=== PATIENT | male | born 1955 | race Hispanic/Latino ===

== ENCOUNTER 2022-09-13 11:22 | Outpatient (CLI) | payer BC, SELFPAY ==
--- NOTE | 2022-09-13 11:38 | ECG_ITS ---
Measurements Intervals [place] Rate: 93 P: 7 DE: 153 QRS: -35 QRSD: 94 T: 80 QT: 360 QTc: 449 Interpretive Statements REDUCED ECG QUALITY BECAUSE OF BASELINE ARTIFACT SINUS RHYTHM INFERIOR MYOCARDIAL INFARCTION [40+ ms Q WAVE AND/OR ST/T ABNORMALITY IN II/aVF], PROBABLY OLD NO PREVIOUS ECG AVAILABLE FOR COMPARISON Electronically Signed On 09-13-2022 15:14:03 BACON SLICER by Nestor Sandoval M.D.
[2022-09-13 12:04] LABS: Hematocrit 35.7 % (42.0-52.0); Hemoglobin 11.3 g/dL (14.0-18.0)
[2022-09-13 12:13] LABS: Anion Gap 8 mmol/L (8-16); Blood Urea Nitrogen 12 mg/dL (9-20); Calcium 8.9 mg/dL (8.4-10.2); Carbon Dioxide 30 mmol/L (22-30); Chloride 102 mmol/L (98-107); Estimated Glomerular Filt Rate > 60; Glucose 109 mg/dL (65-110); Potassium 4.5 mmol/L (3.4-5.0); Sodium 140 mmol/L (137-145)
== END 2022-09-13 11:23 | disposition home or self-care (01) ==
PROVIDERS: Anesthesiology; PCP Family Medicine; Visit Provider Neurological Surgery
DX: M48.062 Spinal stenosis, lumbar region with neurogenic claudication (principal); I10 Essential (primary) hypertension; Z79.899 Other long term (current) drug therapy; Z01.818 Encounter for other preprocedural examination; R94.31 Abnormal electrocardiogram [ECG] [EKG]; I21.19 ST elevation (STEMI) myocardial infarction involving other coronary artery of inferior wall
CPT/HCPCS: 36415; 80048; 85014; 85018; 86850; 86900; 86901; 93005

== ENCOUNTER 2022-09-30 00:17 | Day surgery (SDC) | payer BC, SELFPAY ==
[2022-09-03 10:40] VITALS: BMI 25.4
--- NOTE | 2022-09-03 10:58 | PC.NURSE ---
PRE-OP INSTRUCTIONS, PLEASE READ CAREFULLY Report to the Outpatient Waiting Room, entrance under the green pavilion located off [facility], at time _0930_ on date _09/16/22_. Planned Procedure Time: _1130_. PACK A SMALL OVERNIGHT BAG AND LEAVE IN THE CAR Time changes happen often and if your time is changed the preop area will call you the afternoon before. - You and your visitor will be asked to self-screen and do not enter if you have any COVID symptoms. - Only one visitor is requested with a max of two and NO children visitors are allowed at this time. - The patient visitor may be requested to leave or wait in car when not with patient due to distancing restrictions. - A mask is optional within the hospital. -VISITING HOURS 8AM-8PM Patients may have clear liquids (water, carbonated beverages, clear teas, apple juice) until 3 hours prior to surgery (0830 AM) with a maximum of 20 ounces. - No food from midnight until time of surgery Take the following medications with a SIP of water the morning of surgery: _TRAMADOL AND NASAL SPRAY IF NEEDED__ Medications to discontinue _ALEVE PER DR. LALA'S INSTRUCTIONS_ Please no make-up, nail slovak, hairspray, perfume, deodorant, or body powder the day of surgery. No jewelry (including any body piercings) or valuables the day of surgery, leave them at home. Please take a shower or bath the night before, or the morning of, surgery with an antibacterial soap. Wear comfortable, loose fitting clothing. - Jewelry must be removed prior to entering the operating room. Rings and piercings that are not removed may be cut off. - The hospital will not accept responsibility for valuables. - Please leave all valuables, including medications, at home the day of surgery. If you are going home after surgery, a licensed four horse hitch driver must drive you home. - NO public transportation without another adult if you receive anesthesia. - We recommend that an adult stay with you for 24 hours following discharge. - We also recommend that you do not drive, make important decision, drink alcoholic beverages, or take any drugs that were not prescribed by your health care provider for at least 24 hours after your discharge time. Follow any additional instructions given to you from your surgeon. If you or anyone in your household have experienced Covid symptoms in the past week, please notify your surgeon or the nurse liaison at the phone number below for possible testing. Telephone instructions given to ____PT and asked if any additional questions and then verbalized understanding. Patient advised to call surgeon office or pre surgery nurse liaison [phone] if any additional questions.
--- NOTE | 2022-09-20 09:53 | PC.NURSE ---
Report to the Outpatient Waiting Room, entrance under the green pavilion located off [facility], at time __0830 on date __09/30/22 . Planned Procedure Time: __1030 . Time changes happen often and if your time is changed the preop area will call you the afternoon before. - You and your visitor will be asked to self-screen and do not enter if you have any COVID symptoms. - Only one visitor is requested with a max of two and NO children visitors are allowed at this time. - The patient visitor may be requested to leave or wait in car when not with patient due to distancing restrictions. - A mask is optional within the hospital. Patients may have clear liquids (water, carbonated beverages, clear teas, apple juice) until 3 hours prior to surgery (0730 AM) with a maximum of 20 ounces. - No food from midnight until time of surgery - Infants may have breast milk until 4 hours before surgery, formula 6 hours prior to surgery. - Children will be allowed to drink immediately following surgery. If applicable, please bring a bottle or sippy cup to assist with drinking. Juice, water, soda, and popsicles are readily available. For infants on formula, please bring formula the day of surgery. Pacifiers are allowed. Take the following medications with a SIP of water the morning of surgery: __TRAMADOL & NASAL SPRAY IF NEEDED__ Medications to discontinue per physician __ALEVE PER DR. LALA'S INSTRUCTIONS__ Date to take last dose Please no make-up, nail turkmen, hairspray, perfume, deodorant, or body powder the day of surgery. No jewelry (including any body piercings) or valuables the day of surgery, leave them at home. Please take a shower or bath the night before, or the morning of, surgery with an antibacterial soap. Wear comfortable, loose fitting clothing. Children are encouraged to wear pajamas. - Jewelry must be removed prior to entering the operating room. Rings and piercings that are not removed may be cut off. - The hospital will not accept responsibility for valuables. - Please leave all valuables, including medications, at home the day of surgery. If you are going home after surgery, a licensed driver's license examiner must drive you home. - NO public transportation without another adult if you receive anesthesia. - We recommend that an adult stay with you for 24 hours following discharge. - We also recommend that you do not drive, make important decision, drink alcoholic beverages, or take any drugs that were not prescribed by your health care provider for at least 24 hours after your discharge time. For Pediatric surgeries, we recommend two adults accompany the child home. Follow any additional instructions given to you from your surgeon. If you or anyone in your household have experienced Covid symptoms in the past week, please notify your surgeon or the nurse liaison at the phone number below for possible testing. Telephone instructions given to ____PT and asked if any additional questions and then verbalized understanding. Patient advised to call surgeon office or pre surgery nurse liaison [phone] if any additional questions.
[2022-09-30] VITALS (13 sets, daily range): BP systolic 95–124; BP diastolic 40–70; PULSE 78–99; RESP 14–18; TEMP 36.2–37.2; O2SAT 94–100
--- NOTE | ~2022-09-30 | XR_ITS ---
EXAMINATION: XR fluoroscopy no charge DATE: 09/30/2022 15:02 INDICATION: Lumbar stenosis with neurogenic claudication. TECHNIQUE: 2 intraoperative fluoroscopic views of the lumbar spine were obtained. I was not present. Fluoroscopy exposure time was 18 seconds. COMPARISON: None. FINDINGS: There are changes of anterior and posterior fusion procedures at L4-L5 with interbody devic es and pedicle screws. IMPRESSION: 1. Anterior and posterior fusion procedures at L4-L5. Reviewed, dictated and finalized at location A. H MIXER OPERATOR
--- NOTE | 2022-09-30 09:47 | P.PNAN_ITS ---
Anes - Initial Pre Proc Eval Procedure: Operation Date: 09/30/22 10:30 Proposed Procedures p L4-5 Almaguer Decompression, Interbody Fusion with Cages, Posterior Fusion with Instrumentation and Autograft - Nestor Del Valle M.D. Date/Time: 09/30/22 09:47 Surgeon: Nestor Del Valle M.D. Pre Op Diagnosis: lumbar stenosis with neurogenic claudication Patient Data Age: 67 Gender: M Height: 1.7 m Weight: 70.5 kg Last Vital Signs Temp 36.9 C 09/30/22 09:05 Pulse 89 09/30/22 09:05 Resp 16 09/30/22 09:05 BP 124/70 09/30/22 09:05 Pulse Ox 95 09/30/22 09:05 O2 Del Method Room Air 09/30/22 09:05 Allergies Allergy/AdvReac Type Severity Reaction Status Date / Time No Known Allergies Allergy Verified 09/30/22 08:43 Home Medications Medication Instructions Recorded Confirmed Type duloxetine 60 mg capsule,delayed 60 mg PO DAILY 07/13/22 09/30/22 History release (Cymbalta) epinephrine 0.15 mg/0.3 mL 0.15 mg IM Q30M PRN ALLERIC 07/13/22 09/03/22 History injection,auto-injector (EpiPen Jr REACTION 2-Julio) fluticasone propionate 50 1 spray intranasal DAILY 07/13/22 09/30/22 History mcg/actuation nasal spray,suspension lisinopril 20 1 tablet PO DAILY 07/13/22 09/30/22 History mg-hydrochlorothiazide 25 mg tablet omeprazole 40 mg capsule,delayed 40 mg PO DAILY 07/13/22 09/30/22 History release tramadol 50 mg tablet (Ultram) 50 mg PO Q6H PRN Pain 07/13/22 09/30/22 History naproxen sodium 220 mg tablet 220 mg PO BID PRN Pain 09/03/22 09/30/22 History (Aleve) Patient hx anesthesia problems: none Family hx anesthesia problems: none Results Review: All pre-operative results and documents have been reviewed as part of the pre- operative evaluation. [facility] Past Medical History Medical History Barretts esophagus Chronic back pain Depression Dyslipidemia Hypertension Spinal stenosis Social History Social History Smoking status: Never smoker Second hand tobacco smoke exposure: No Alcohol intake: never Substance use: never Substance use type: does not use Living arrangements: with family Spiritual care concerns: No Anes - Eval Final PreProcedure Day of Procedure 09/30/22 09:47 Patient weight: normal Heart: regular rate and rhythm Lungs: clear to auscultation Airway: Mallampati scale class II Neurological: alert and oriented Last oral intake: >/= 8 hours ASA classification: III Emergent: no Anesthetic plan: proceed Anesthesia type and monitoring: general ETT and standard monitoring Results Review: All pre-operative results and documents have been reviewed as part of the pre- operative evaluation. Informed Consent: The patient's anesthetic plan and its attendant risks and benefits were discussed with the patient/family/POA. Questions were solicited and answers provided to the satisfaction of the patient/family/POA.
[2022-09-30] MEDS: LACTATED RINGERS 1,000 ML 30 ML IV CONT ×3 (09:50→16:01)
--- NOTE | 2022-09-30 10:41 | WPDHPUPDATE1 ---
History and Physical Update Update Date/Time: 09/30/22 10:41 History and Physical has been reviewed, including an updated exam of the patient. There are NO changes in the patient's condition. Risks, benefits, and alternatives have been discussed and questions answered. Patient agrees to proceed with procedure.
--- NOTE | 2022-09-30 10:42 | P.HP_ITS ---
H&P: HPI History of Present Illness Date/Time: 09/30/22 10:42 Chief Complaint: Leg pain Narrative: The patient continues to struggle with claudicatory pain radiating from his back into his buttocks into both legs. He states that his weakness is stable. He does not have recent issues with incontinence. He tells me that he has to get to the bathroom quickly. Review of Systems Review of Systems: He denies any recent problems with fevers, chills, sweats, excessive weight change, chest pain, shortness of breath, abdominal pain, nausea, vomiting, diarrhea, blood in the stool or urine. [facility] Past Medical History Medical History Barretts esophagus Chronic back pain Depression Dyslipidemia Hypertension Spinal stenosis Social History Social History Smoking status: Never smoker Second hand tobacco smoke exposure: No Alcohol intake: never Substance use: never Substance use type: does not use Living arrangements: with family Spiritual care concerns: No Meds Home Medications and Allergies Home Medications Medication Instructions Recorded Confirmed Type duloxetine 60 mg capsule,delayed 60 mg PO DAILY 07/13/22 09/30/22 History release (Cymbalta) epinephrine 0.15 mg/0.3 mL 0.15 mg IM Q30M PRN ALLERIC 07/13/22 09/03/22 History injection,auto-injector (EpiPen Jr REACTION 2-Julio) fluticasone propionate 50 1 spray intranasal DAILY 07/13/22 09/30/22 History mcg/actuation nasal spray,suspension lisinopril 20 1 tablet PO DAILY 07/13/22 09/30/22 History mg-hydrochlorothiazide 25 mg tablet omeprazole 40 mg capsule,delayed 40 mg PO DAILY 07/13/22 09/30/22 History release tramadol 50 mg tablet (Ultram) 50 mg PO Q6H PRN Pain 07/13/22 09/30/22 History naproxen sodium 220 mg tablet 220 mg PO BID PRN Pain 09/03/22 09/30/22 History (Aleve) Allergies Allergy/AdvReac Type Severity Reaction Status Date / Time No Known Allergies Allergy Verified 09/30/22 08:43 Vital Signs Vital Signs - 24 hr 09/30/22 09:05 Temperature 98.4 F Pulse Rate 89 Respiratory Rate 16 Blood Pressure 124/70 Pulse Oximetry 95 Oxygen Delivery Room Air Exam Narrative: His lungs are clear to auscultation. His heart has a regular rate. His abdomen is soft and nontender. He has weakness in his lower extremities in his gastrocnemius eye. Otherwise he is neurologically intact. Assessment and Plan Assessment and plan (1) Lumbar stenosis with neurogenic claudication: Code(s): M48.062 - Spinal stenosis, lumbar region with neurogenic claudication Status: Acute Plan Assessment: The patient continues to struggle with neurogenic claudication secondary to his lumbar stenosis and spondylolisthesis. Plan: We will move forward with his L4-5 decompression, interbody fusion with cages, posterior fusion with instrumentation, and autograft. The risks and benefits again were discussed with the patient and his family and they wished to proceed.
[2022-09-30] MEDS: ceFAZolin 2 GM/D5W 50 ML 2 GM/50 ML BAG IVPB (10:43)
[2022-09-30] MEDS: BUPIVACAINE/EPINEPHRINE 0.5% 30 ML VIAL INFILTRATE (11:32)
[2022-09-30] MEDS: ceFAZolin SODIUM 1 GM VIAL IV PUSH (15:15)
[2022-09-30] MEDS: fentaNYL CITRATE INJ (*CRX) 100 MCG/2 ML VIAL 25 MCG IV PUSH ×8 (15:56→16:50)
--- NOTE | 2022-09-30 16:04 | W.PM.PROC2 ---
Procedure Note - Detailed Date of Procedure 09/30/22 Pre-op Diagnosis lumbar stenosis with neurogenic claudication Post-op Diagnosis Same Procedure Performed L4-5 Almaguer decompression, interbody fusion with titanium cages, posterior fusion with instrumentation, autograft. Surgeon Nestor Del Valle M.D. Dentures Lab Technician Dr. Maureen Lewis Anesthesia General Indications Stenosis with neurogenic claudication Findings Stenosis, spondylolisthesis Description of Procedure The patient was taken to the operating room and in the supine position underwent smoothly induced general anesthesia via and endotracheal tube. Wei hose, sequential stockings and a Garay catheter were placed. He received 2 g of IV Ancef preoperatively. He was tuned prone onto the operating room table on an open Jorge frame. The C-arm was brought in and a skin incision was marked centered over the L4-5 level. The back was prepped and draped in the usual fashion. The area of the incision was infiltrated with 30 cc of 0.5% Marcaine with [id number] epinephrine. A midline vertical incision was made centered over the L4-5 level. The dissection was carried down to the lumbodorsal fascia which was divided just lateral to the spinous processes. Paraspinous muscle was reflected laterally over the L3-4 and L4-5 facets exposing the transverse processes bilaterally. A [employer] 4 was placed under the lamina and a C-arm image confirmed this level. Self-retaining retractors were applied. The Almaguer decompression was performed. The spinous process, inferior lamina, the medial side facets, and the pars interarticularis were removed bilaterally. Foraminotomies were performed bilaterally over the L4 and L5 nerve roots. This Almaguer decompression was performed using the Leksell rongeur and Kerrison punches. The interbody fusion was performed. Epidural veins were coagulated and divided. The posterior longitudinal ligament was incised sharply bilaterally. The disc space finer was used to enter the disc space. It the inter spinous distractor was used to facilitate the entry into the disc space. Cartilaginous endplate and disc material was mobilized using Clair and curettes and removed. Trial spacers were placed the CoreLink titanium cages. A 9 mm x 22 mm cage was selected for the left side and a 10 mm x 22 mm cage was selected for the right. 7 degree lordotic cages were utilized. The previously harvested bone was carefully cleaned of soft tissue and morselized and packed into the disc space in between the 2 cages. The cages were packed with bone and then tapped into the disc space firmly and countersunk. The posterior lateral fusion was then performed. The transverse processes were decorticated using the drill bilaterally and the remainder of the harvested bone graft was packed along the transverse processes. The posterior spinal instrumentation was then placed. Entry points were selected using anatomic landmarks and the corticated. The pedicle finer was passed into the pedicles. The holes were palpated and tapped and then 7.5 mm x 45 mm Orthofix NXG screws were placed in all 4 pedicles. All screws entered with excellent purchase. The screw heads were connected by rods which were secured using top-loading set screws. During final tightening with the torque stock driver gentle compression was applied across the L4-5 segment. AP and lateral C-arm images at this time were obtained confirming good position of the instrumentation, good alignment and lordosis. The wound was thoroughly irrigated with antibiotic solution and inspected for hemostasis. FloSeal was used intermittently throughout the case for hemostasis. A medium Hemovac drain was left in place and tunneled subcutaneously. The wound was then closed in layers with 0 Vicryl in the lumbodorsal fascia, 2-0 Vicryl in Josefina's layer, 3-0 Vicryl in the subcutaneous layer, and 4-0 Monocryl in a running subcuticular stitch in the skin. Steri-Strips and a
--- NOTE | 2022-09-30 16:57 | SUR.OPER ---
300mL of clear yellow urine drained from shane bag at the end of the case
[2022-09-30] MEDS: oxyCODONE/ACETAMINOPHEN (*CRX) 5-325 MG TABLET 1 TABLET PO (17:48)
[2022-09-30] MEDS: KCL 20 MEQ/D5/0.45% SOD CHL 1,000 ML 100 ML IV CONT (17:48)
[2022-09-30] MEDS: MORPHINE SULFATE (*CRX) 2 MG/ML INJ IV PUSH (19:13)
[2022-09-30] MEDS: DOCUSATE SODIUM 100 MG CAPSULE PO (20:44)
[2022-09-30] MEDS: oxyCODONE/ACETAMINOPHEN (*CRX) 10-325 MG TABLET 1 TAB PO (21:19)
[2022-10-01] MEDS: oxyCODONE/ACETAMINOPHEN (*CRX) 10-325 MG TABLET 1 TAB PO ×4 (02:32→16:53)
[2022-10-01 03:53] VITALS: BP 129/72; PULSE 74; RESP 17; TEMP 36.2; O2SAT 98
[2022-10-01 08:07] VITALS: BP 124/64; PULSE 78; RESP 18; TEMP 37.1; O2SAT 98
[2022-10-01] MEDS: PANTOPRAZOLE 40 MG TABLET PO ×2 (08:51→16:53)
[2022-10-01] MEDS: DOCUSATE SODIUM 100 MG CAPSULE PO (08:52)
[2022-10-01] MEDS: DULoxetine HCL 60 MG CAPSULE.DR PO (08:52)
[2022-10-01] MEDS: FLUTICASONE PROPIONATE 0.05% NA SPR 16 GM BTL (*BKC) 1 SPRAY NASAL (08:52)
[2022-10-01] MEDS: lisinopriL 20 MG TABLET PO (08:52)
[2022-10-01] MEDS: hydroCHLOROthiazide 25 MG TABLET PO (08:53)
--- NOTE | 2022-10-01 11:07 | WPDANESPN ---
Anes - Prog Note Post-Op Date/Time: 10/01/22 11:07 Cardiovascular status: normal Respiratory status: normal Airway patency: baseline Mental status: baseline Post-Op hydration status: normal Vital Signs: Last Vital Signs Temp 37.1 C 10/01/22 08:07 Pulse 78 10/01/22 08:07 Resp 18 10/01/22 08:07 BP 124/64 10/01/22 08:07 Pulse Ox 98 10/01/22 08:07 O2 Del Method Room Air 09/30/22 22:24 O2 Flow Rate 6 09/30/22 16:15 Pain Score (VAS): 04/11 I/O: Intake & Output 09/30/22 10/01/22 10/01/22 23:59 07:59 15:59 Intake Total 250 1790 Output Total 135 2120 Balance 115 -330 09/30/22 09:01 Blood Type O Positive Antibody Screen Negative Post-procedural complaints: none Patient Feedback: Patient satisfied with anesthetic care.
[2022-10-01 12:05] VITALS: BP 126/68; PULSE 76; RESP 16; TEMP 37.2; O2SAT 99
--- NOTE | 2022-10-01 12:06 | WPDNEUROSGPN ---
Progress Note: A&P Assessment and Plan (1) Lumbar stenosis with neurogenic claudication: Code(s): M48.062 - Spinal stenosis, lumbar region with neurogenic claudication Status: Acute Assessment and Plan: Assessment: The patient is doing well postoperative day 1. He would like to go home later today. He is ambulating, voiding, and taking p.o. well. Plan Plan: I think it is reasonable for him to be discharged home later today if his drain out put decreases to less than 10 cc/hour. I reviewed discharge instructions with the patient and his . We talked about use of the brace. He will have Percocet, Tylenol, and muscle relaxers to take on an as-needed basis. He will avoid nonsteroidal anti-inflammatory medications. I will see him back in 1 month with x-rays. Time Spent With Patient Time with patient: 15 - 25 minutes Subjective Date/time seen: 10/01/22 12:06 Interval history: I visited with this patient this morning for postoperative follow-up. He is postoperative day 1 from his L4-5 decompression and fusion. He is very pleased with his progress. He is having incisional pain. He has no leg pain. His legs feel stronger and better than they did before surgery. He has ambulated in the halls. He is voiding. He is taking p.o. well. Exam Narrative: He is awake and alert and cooperative. He has 5/5 gross motor strength in his legs. His sensation is intact. His bandages clean and dry. There is serosanguineous drainage in his Hemovac. He had approximately 120 cc of drainage over the last 7 hours. Objective Data Vital Signs Vital Signs: Vital Signs - 24 hr 09/30/22 15:46 09/30/22 16:00 09/30/22 16:15 Temperature 98.2 F Pulse Rate 86 95 89 Respiratory Rate 18 18 14 Blood Pressure 95/48 L 99/50 L 109/59 L Pulse Oximetry 100 100 100 Oxygen Delivery Simple Face Mask Simple Face Mask Simple Face Mask Oxygen Flow Rate 6 6 6 09/30/22 16:30 09/30/22 16:20 09/30/22 16:45 Temperature Pulse Rate 96 90 Respiratory Rate 18 18 Blood Pressure 113/60 107/61 Pulse Oximetry 96 97 Oxygen Delivery Room Air Room Air Room Air Oxygen Flow Rate 09/30/22 17:00 09/30/22 17:30 09/30/22 17:25 Temperature 97.6 F Pulse Rate 98 99 Respiratory Rate 18 18 Blood Pressure 105/61 101/59 L Pulse Oximetry 95 98 Oxygen Delivery Room Air Room Air Oxygen Flow Rate 09/30/22 17:40 09/30/22 18:10 09/30/22 19:10 Temperature 97.5 F L 97.4 F L 97.1 F L Pulse Rate 94 94 80 Respiratory Rate 18 18 18 Blood Pressure 118/63 100/54 L 118/64 Pulse Oximetry 95 94 100 Oxygen Delivery Oxygen Flow Rate 09/30/22 20:07 09/30/22 22:24 09/30/22 23:54 Temperature 97.1 F L 99 F Pulse Rate 86 78 Respiratory Rate 18 18 Blood Pressure 101/53 L 107/40 L Pulse Oximetry 96 100 Oxygen Delivery Room Air Oxygen Flow Rate 10/01/22 03:53 10/01/22 08:07 10/01/22 12:05 Temperature 97.2 F L 98.8 F 98.9 F Pulse Rate 74 78 76 Respiratory Rate 17 18 16 Blood Pressure 129/72 124/64 126/68 Pulse Oximetry 98 98 99 Oxygen Delivery Oxygen Flow Rate Intake/Output Intake/Output: Intake & Output 09/28/22 09/29/22 09/30/22 10/01/22 23:59 23:59 23:59 23:59 Intake Total 300 1790 Output Total 135 2260 Balance 165 -470 Meds/Results Medications: Active Medications Generic Name Dose Route Start Last Admin Trade Name Freq PRN Reason Stop Dose Admin Al Hydrox/Mg Hydrox/Simethicone 20 ml 09/30/22 17:07 Mag Hydrox/Al Hydrox/Simeth 30 Ml Udc PO Q4H PRN Indigestion/Heartburn Bisacodyl 10 mg 09/30/22 17:07 Bisacodyl 10 Mg Suppository RECTAL DAILY PRN Constipation Docusate Sodium 100 mg 09/30/22 21:00 10/01/22 08:52 Docusate Sodium 100 Mg Capsule PO 100 mg Q12HR THEE Administration Duloxetine HCl 60 mg 10/01/22 09:00 10/01/22 08:52 Duloxetine Hcl 60 Mg Capsule.Dr PO 60 mg DAILY THEE Administration Fluticasone Propio
[2022-10-01 16:07] VITALS: BP 119/71; PULSE 84; RESP 18; TEMP 37.1; O2SAT 97
[2022-10-01] MEDS: oxyCODONE/ACETAMINOPHEN (*CRX) 5-325 MG TABLET 1 TABLET PO (20:04)
== END 2022-10-01 20:38 | disposition home or self-care (01) ==
LOC: ANHSURGERY 16:03 → ANH3MED 19:04
PROVIDERS: PCP Family Medicine; Visit Provider Neurological Surgery
PROC: (CPT 22612; principal; 2022-09-30 10:30)
DX: M48.062 Spinal stenosis, lumbar region with neurogenic claudication (principal); I10 Essential (primary) hypertension; E78.5 Hyperlipidemia, unspecified; G89.29 Other chronic pain; F32.A Depression, unspecified
CPT/HCPCS: 22633; 22853; 20936; 22840; 36415; 86850; 86900; 86901; 97161; 97165; 97530; 97535; 99199; A9270; C1713; J0330; J0690; J1100; J1170; J2250; J2270; J2405; J2704; J2710; J3010; J3370; J3480; J7120

== ENCOUNTER 2022-10-06 12:50 | Outpatient (CLI) | payer BC, SELFPAY ==
--- NOTE | ~2022-10-06 | XR_ITS ---
Lumbosacral Spine: AP and lateral views Clinical History: Pain Findings: There is posterior fusion hardware extending from L4 to L5, with bilateral rods and transpe dicular screws present. This fusion device present at the L4-L5 disc space. There is probable grade 1 anterolisthesis of L5 over S1. Remaining disc spaces are preserved. The intervertebral disc spaces a re preserved. The sacroiliac joints are normally outlined. Impression: Posterior fusion from L4 to L5, as detailed above. Probable grade 1 anterolisthesis of L5 over S1. Reviewed, dictated and finalized at location M. IZER Impression: Posterior fusion from L4 to L5, as detailed above. Probable grade 1 anterolisthesis of L5 over S1.
== END 2022-10-06 12:51 | disposition home or self-care (01) ==
PROVIDERS: PCP Family Medicine; Visit Provider Neurological Surgery
DX: M54.50 Low back pain, unspecified (principal); Z98.1 Arthrodesis status
CPT/HCPCS: 72100